=== PATIENT | female | born 1960 | race Caucasian/White ===

== ENCOUNTER 2017-09-16 11:00 | Inpatient (IN) | payer OTHER ==
[~2017-09-16] VITALS: Ht 154.9 cm; Wt 80.9 kg
[2017-09-16 11:06] VITALS: Ht 154.9 cm; Wt 80.9 kg
[2017-09-16 12:14] LABS: CALCIUM 8.5 mg/dL (8.5-10.1); CARBON DIOXIDE 29.1 mmol/L (21-32); CHLORIDE SERUM 105 mmol/L (98-107); CREATININE SERUM 0.9 mg/dL (0.6-1.0); GFR1 > 60 mL/min; GLUCOSE SERUM 98 mg/dL (74-106); POTASSIUM SERUM 3.8 mmol/L (3.5-5.1); SODIUM SERUM 142 mmol/L (136-145)
[2017-09-16 12:19] LABS: ALBUMIN 3.5 g/dL (3.4-5.0); ALKALINE PHOSPHATASE 104 U/L (46-116); ALT/SGPT 41 U/L (14-59); AST/SGOT 33 U/L (15-37); BILIRUBIN TOTAL 0.4 mg/dL (0.20-1.00); CHOLESTEROL 179 mg/dL (<200); HDL CHOLESTEROL 39 mg/dL (40-60); TOTAL PROTEIN, SERUM 6.8 g/dL (6.4-8.2)
[2017-09-16 12:27] LABS: BASOPHIL % 0.3 % (0-2); PLATELET COUNT 187 x10^3mcL (130-400)
[2017-09-16 12:44] LABS: RED CELL DISTRIBUTION WIDTH 14.6 % (11.5-14.5)
[2017-09-16 13:00] LABS: AMPHETAMINE QUAL UR NONE DETECTED (NEG <=1000)
[2017-09-16] MEDS ORDERED: SYNTHROID0.075 MG (13:54)
[2017-09-16 14:30] VITALS: BP 156/84
[2017-09-16 14:30] LABS: T3 TOTAL 0.78 ng/mL
[2017-09-16 14:45] LABS: CHOLESTEROL/HDL RATIO 4.6; PHOSPHOROUS 3.1 mg/dL (2.5-4.9)
[2017-09-16 14:51] LABS: FREE T4 1.18 ng/dL (0.76-1.46); T4(THYROXINE) 8.9 ug/dL (4.7-13.3)
[2017-09-16 15:07] LABS: UA SPECIFIC GRAVITY >=1.030 (1.005-1.035); microscopic required? YES; urine erythrocyte 1+ (NEGATIVE)
[2017-09-16 16:29] VITALS: BP 118/65
[2017-09-16] MEDS ORDERED: NOR10T PO (18:26)
[2017-09-16 20:42] VITALS: BP 118/60
[2017-09-17 06:07] VITALS: BP 123/68
[2017-09-17 06:23] LABS: BASOPHIL % 0.4 % (0-2); PLATELET COUNT 178 x10^3mcL (130-400); RED CELL DISTRIBUTION WIDTH 14.2 % (11.5-14.5)
[2017-09-17 06:50] LABS: CALCIUM 8.3 mg/dL (8.5-10.1); CARBON DIOXIDE 28.2 mmol/L (21-32); CHLORIDE SERUM 108 mmol/L (98-107); CREATININE SERUM 0.9 mg/dL (0.6-1.0); GFR1 > 60 mL/min; GLUCOSE SERUM 90 mg/dL (74-106); SODIUM SERUM 143 mmol/L (136-145)
[2017-09-17 09:55] VITALS: BP 154/83
[2017-09-17 12:18] VITALS: BP 151/68
[2017-09-17 17:18] VITALS: BP 123/69
[2017-09-17 20:39] VITALS: BP 136/85
[2017-09-18 05:50] VITALS: BP 140/70
[2017-09-18 07:08] LABS: BASOPHIL % 0.4 % (0-2); PLATELET COUNT 178 x10^3mcL (130-400); RED CELL DISTRIBUTION WIDTH 14.5 % (11.5-14.5)
[2017-09-18] MEDS ORDERED: LIO10 PO (07:38)
[2017-09-18 09:12] VITALS: BP 140/70
[2017-09-18 09:29] LABS: CALCIUM 8.5 mg/dL (8.5-10.1); CARBON DIOXIDE 29.2 mmol/L (21-32); CHLORIDE SERUM 107 mmol/L (98-107); CREATININE SERUM 0.9 mg/dL (0.6-1.0); GFR1 > 60 mL/min; GLUCOSE SERUM 88 mg/dL (74-106); POTASSIUM SERUM 3.9 mmol/L (3.5-5.1); SODIUM SERUM 141 mmol/L (136-145)
[2017-09-18 09:31] VITALS: BP 134/81
== END 2017-09-18 16:03 | disposition home or self-care (01) | DRG 48 ==
LOC: ED 11:00 → DU 13:18
PROVIDERS: Emergency Medicine; Family Medicine
DX: G90.8 Other disorders of autonomic nervous system (principal); N17.0 Acute kidney failure with tubular necrosis; E55.9 Vitamin D deficiency, unspecified; G89.29 Other chronic pain; E03.9 Hypothyroidism, unspecified; F17.210 Nicotine dependence, cigarettes, uncomplicated; M54.9 Dorsalgia, unspecified; E78.5 Hyperlipidemia, unspecified; E86.0 Dehydration; G43.909 Migraine, unspecified, not intractable, without status migrainosus; Z53.29 Procedure and treatment not carried out because of patient's decision for other reasons; M54.32 Sciatica, left side; A08.4 Viral intestinal infection, unspecified; M85.80 Other specified disorders of bone density and structure, unspecified site; M47.9 Spondylosis, unspecified; N39.0 Urinary tract infection, site not specified
CPT/HCPCS: 83880; 84439; 85378; 97110-GP; 99406; J0696; J2405; J7030; Q0092